=== PATIENT | male | born 1955 | race Caucasian/White ===

== ENCOUNTER 2017-07-27 05:47 | Emergency (ER) | payer SELFPAY ==
[~2017-07-27] VITALS: Ht 180.3 cm; Wt 81.6 kg
[~2017-07-27 05:47] MED LIST: MECL25TA3 PO
[2017-07-27] MEDS ORDERED: LISINOPRIL 10 MG TABLET PO ONE (07:00)
--- NOTE | 2017-07-27 07:08 | RAD ---
INDICATION: WEAKNESS, OFF BALANCE COMPARISON: None. TECHNIQUE: Axial CT images obtained through the head without intravenous contrast. One or more of the following individualized dose reduction techniques were utilized for this examination: 1. Automated exposure control; 2. Adjustment of the mA and/or kV according to patient size; 3. Use of iterative reconstruction technique. FINDINGS: No intracranial hemorrhage. No midline shift. Basal cisterns patent. Ventricles and sulci are unremarkable. No acute osseous abnormality. Mild mucosal thickening left maxillary sinus partially seen. Mild nasal septal bowing. IMPRESSION: 1. No acute intracranial hemorrhage. Electronically signed by: Manish Rivas MD (07/27/2017 7:04 AM) [id number]
--- NOTE | 2017-07-27 07:15 | RAD ---
Chest, 2 views, 07/27/2017: History: Weakness, loss of balance Comparison is made to a study from 10/06/2015. The heart size and pulmonary vascularity are normal. No pulmonary infiltrates are seen. There are granulomatous calcifications in the left chest. There is no evidence of pleural fluid. Moderate degenerative changes are present in the spine. A surgical plate and screws transfixing an old healed left clavicular fracture. IMPRESSION: No acute cardiopulmonary abnormality is detected.
[2017-07-27 07:31] LABS: BASO % 1 % (0-3); EOS # 0.1 x10^3/uL (0.0-0.7); EOS % 1 % (0-3); HEMATOCRIT 46.6 % (39.0-53.0); HEMOGLOBIN 16.2 g/dL (13.0-17.5); LYMPH # 0.8 x10^3/uL (1.0-4.8); LYMPH % 11 % (24-48); MEAN CORPUSCULAR HEMOGLOBIN 35 pg (25-35); MEAN CORPUSCULAR HGB CONC 35 g/dL (31-37); MEAN CORPUSCULAR VOLUME 101 fL (79-100); MONO # 0.5 x10^3/uL (0.0-1.1); MONO % 8 % (0-9); NEUT # 5.4 x10^3uL (1.8-7.7); NEUT % 80 % (31-73); PLATELET COUNT 197 x10^3/uL (140-400); RED BLOOD COUNT 4.62 x10^6/uL (4.30-5.70); RED CELL DISTRIBUTION WIDTH 13.7 % (11.5-14.5); WHITE BLOOD COUNT 6.8 x10^3/uL (4.0-11.0)
--- NOTE | 2017-07-27 07:45 | PHYS DOC ---
Past History Past Medical History: Anxiety, Hypertension, Migraines, Other Past Surgical History: Other Smoking: Cigarettes Alcohol Use: Occasionally Drug Use: None Adult General Chief Complaint Chief Complaint: WEAKNESS/GENERALIZED HPI HPI Patient is a 62-year-old male who presents driving himself to the emergency department with the complaint "I'm in a fog". Patient states that for 3 weeks or more he has had worsening symptoms of feeling like he is in a fog. He feels like his legs "won't work". Patient saw his doctor for these complaints recently and was advised to quit smoking and stop intake of dairy. Patient got up this morning at 3 AM as usual. He felt worse than he has been feeling. He drove himself to work and then stated that he virtually collapsed. He was not able to walk once he got to work. Coworkers helped him back to his truck and he drove here to be seen. He ambulated from the parking lot into the waiting room to sign in. 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 He works driving a bus until about 5 PM. He likes his job. He has recently felt like he's had more trouble doing his job because of these symptoms and because of fatigue. This morning the patient did not take his morning blood pressure medicine. He takes lisinopril 10 mg every morning. He didn't take it this morning because he didn't feel good and was not sure why. He usually does take it every morning when he gets up, last dose was yesterday morning at about 3 AM. Patient is a smoker. His last drink was Tuesday during the football game. He does not drink daily or heavily. 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 PCP Dr. Karolina Zacarias Review of Systems Review of Systems Constitutional: Denies fever or chills Eyes: Denies change in visual acuity, redness, or eye pain [] HENT: He has had a runny nose Respiratory: He has had cough, no shortness of breath Cardiovascular: Denies chest pain GI: Denies vomiting or diarrhea Musculoskeletal: Denies back pain or joint pain [] Integument: Denies rash or skin lesions [] Neurologic: Denies headache All other systems were reviewed and found to be within normal limits, except as documented in this note. Current Medications Current Medications Current Medications Medications (Trade) Dose Ordered Sig/Chavo Start Time Stop Time Status Last Admin Dose Admin Lisinopril (Prinivil) 20 mg 1X ONCE 07/27/17 07:00 07/27/17 07:01 DC 07/27/17 07:05 20 MG Allergies Allergies Allergies Coded Allergies Type Severity Reaction Last Updated Verified sumatriptan Allergy Unknown 03/16/15 No Physical Exam Physical Exam Constitutional: Well developed, well nourished, no acute distress, non-toxic appearance. Alert, warm and dry, mentating well, vital signs stable although blood pressure elevated. HENT: Normocephalic, atraumatic, bilateral external ears normal, nose normal. [] Eyes: conjunctiva normal, no discharge. [] Neck: Normal range of motion, no stridor. [] Cardiovascular:Heart rate regular rhythm, no murmur [] Lungs & Thorax: Bilateral breath sounds clear to auscultation [] Abdomen: soft, no tenderness, no masses, no pulsatile masses. [] Skin: Warm, dry, no erythema, no rash. [] Extremities: No tenderness, no cyanosis, no clubbing, ROM intact, no edema. [] Neurologic: Alert and oriented X 3, normal motor function, no focal deficits noted. Lower extremity strength 5 over 5 and equal bilaterally for extension against resistance and dorsiflexion of the great toes. Current Patient Data Vital Signs Vital Signs Date Time Temp Pulse Resp B/P (MAP) Pulse Ox O2 Delivery O2 Flow Rate FiO2 07/27/17 07:05 72 164/110 07/27/17 05:49 98.9 24 99 Room Air Lab Results Laboratory Tests Test 07/27/17 07:10 White Blood Count 6.8 x10^3/uL (4.0-11.0) Red Blood Count 4.62 x10^6/uL (4.30-5.70) Hemoglobin 16.2 g/dL (13.0-17.5) Hematocrit 46.6 % (39.0-53.0) Mean Corpuscular Volume 101 fL (79-100) H Mean Corpuscular Hemoglobin 35 pg (25-35) Mean Corpuscular Hemoglobin Concent 35 g/dL (31-37) Red Cell Distribution Width 13.7 % (11.5-14.5) Platelet Count 197 x10^3/uL (140-400) Neutrophils (%) (Auto) 80 % (31-73) H Lymphocytes (%) (Auto) 11 % (24-48) L Monocytes (%) (Auto) 8 % (0-9) Eosinophils (%) (Auto) 1 % (0-3) Basophils (%) (Auto) 1 % (0-3) Neutrophils # (Auto) 5.4 x10^3uL (1.8-7.7) Lymphocytes # (Auto) 0.8 x10^3/uL (1.0-4.8) L Monocytes # (Auto) 0.5 x10^3/uL (0.0-1.1) Eosinophils # (Auto) 0.1 x10^3/uL (0.0-0.7) Basophils # (Auto) 0.0 x10^3/uL (0.0-0.2) EKG EKG 12-lead EKG read by me. Sinus rhythm. Heart rate 72. There are no acute ST or T wave changes indicative of ischemia or infarction. No STEMI. No rhythm disturbance. 0644[] Radiology/Procedures Radiology/Procedures Two-view chest x-ray read by the radiologist. No acute findings.[] Course & Med Decision Making Course & Med Decision Making Pertinent Labs and Imaging studies reviewed. (See chart for details) 62-year-old male presents driving himself to the emergency department and ambulated into the waiting room with the complaint of not feeling well for 3 weeks or more, getting worse, legs going out from under him and legs "wobbly" are most of the chief complaints. The patient is having no pain, has had no chest pain or shortness of breath. EKG unremarkable. CT scan of the head read by the radiologist. No acute abnormalities. Labs significant for elevated d- dimer. We will check a CT angiography of the chest. CT angiography negative for acute findings. The patient was given a liter of IV normal saline in the ED. Recheck patient, he states he feels a little better after the liter of fluids. His legs do not feel as wobbly. I believe the patient is stable for discharge. We did not find any acute finding as a cause of his symptoms. I did encourage him to follow up with his primary care doctor for further evaluation, recheck, possible referral. Patient was noted to have elevated blood pressure in the ED. He had not taken his morning dose of lisinopril. Lisinopril was administered, his blood pressure came down some, but remained slightly elevated. I encouraged him to stay on his lisinopril and follow up with his doctor for blood pressure recheck. See instructions for plan. [] Dragon Disclaimer Dragon Disclaimer This electronic medical record was generated, in whole or in part, using a voice recognition dictation system. Departure Departure: Impression: Primary Impression: Lightheadedness Additional Impression: Hypertension Disposition: 01 HOME, SELF-CARE Condition: STABLE Referrals: KAROLINA KAMARA DO (PCP) Patient Instructions: Hypertension, [id number], Smoking Hazards Additional Instructions: As we discussed, I advised you not to go back to work today, and do not return to work until you are feeling better and safe to drive. Make a follow-up appointment with your primary care doctor to have your blood pressure rechecked. If your blood pressure continues to run high, discuss options with your primary care doctor. You may need to increase lisinopril dosage and/or add a second blood pressure medicine. Problem Qualifiers NILO VELOZ MD Jul 27, 2017 07:45
[2017-07-27 07:54] LABS: ALBUMIN 4.2 g/dL (3.4-5.0); ALBUMIN/GLOBULIN RATIO 1.2 (1.0-1.7); CREATININE 1.2 mg/dL (0.7-1.3); GFR 61.8; MAGNESIUM 1.7 mg/dL (1.8-2.4); POTASSIUM 3.6 mmol/L (3.5-5.1); TOTAL BILIRUBIN 0.8 mg/dL (0.2-1.0); TOTAL PROTEIN 7.6 g/dL (6.4-8.2)
[2017-07-27 08:02] LABS: BACTERIA,URINE 0 /HPF (0-FEW); BILIRUBIN,URINE NEG (NEG); CLARITY,URINE CLEAR; COLOR,URINE AMBER; GLUCOSE,URINE NEG (NEG); HYALINE CASTS, URINE OCC /HPF; NITRITE,URINE NEG (NEG); RBC,URINE OCC /HPF (0-2); SQUAMOUS EPITHELIAL CELL,UR OCC /LPF; UROBILINOGEN,URINE 2 mg/dL (0.2 mg/dL); WBC,URINE 0 /HPF (0-4)
[2017-07-27] MEDS ORDERED: IV NORMAL SALINE 1,000ML 1,000 ML IV ONE (08:30)
[2017-07-27] MEDS ORDERED: IOHEXOL 300 MG/ML 75 ML VIAL. IV ONE (08:45)
--- NOTE | 2017-07-27 09:15 | RAD ---
CTA of the chest with contrast, 07/27/2017: History: Elevated d-dimer, weakness Multidetector CT imaging was performed following an IV bolus injection of iodinated contrast material. Multiplanar reconstructions were produced including coronal MIP images. The central pulmonary arteries are well opacified and no filling defects are seen to suggest pulmonary emboli. There is mild calcific plaquing of the thoracic aorta without evidence of aneurysm. Minimal coronary artery calcification is present. No mediastinal or hilar adenopathy is evident. There are calcified mediastinal and left hilar lymph nodes due to old granulomatous disease. There is minimal dependent atelectasis in the posterior costophrenic angles bilaterally. No pulmonary mass or significant infiltrate is seen. There is no evidence of pleural fluid. A small nonspecific low-density lesion in the anterior aspect of the left lobe of liver is unchanged since 10/06/2015. IMPRESSION: No CT evidence of central pulmonary emboli. PQRS Compliance Statement: One or more of the following individualized dose reduction techniques were utilized for this examination: 1. Automated exposure control 2. Adjustment of the mA and/or kV according to patient size 3. Use of iterative reconstruction technique
[2017-07-27 11:30] VITALS: BP 137/103
--- NOTE | 2017-07-27 18:44 | EKG ---
[address] [address] Test Date: 2017-07-27 Test Time: 06:44:09 Pat Name: [facility] Department: Room: Gender: M Clinic Administrator: WARREN : 1955 Requested By: NILO VELOZ Order Number: [id number] Reading MD: Bill Lechuga Measurements Intervals [place] Rate: 72 P: 56 MN: 136 QRS: 12 QRSD: 106 T: 0 QT: 392 QTc: 431 Interpretive Statements SINUS RHYTHM Electronically Signed On 08-01-2017 16:41:18 WARRANT SERVER by Bill Lechuga
== END 2017-07-27 11:30 | disposition home or self-care (01) ==
LOC: ER 05:47
DX: R42 Dizziness and giddiness (principal); I10 Essential (primary) hypertension; F41.9 Anxiety disorder, unspecified; G43.909 Migraine, unspecified, not intractable, without status migrainosus; F17.210 Nicotine dependence, cigarettes, uncomplicated; Z88.1 Allergy status to other antibiotic agents
CPT/HCPCS: 36415; 70450; 71020; 71275; 80053; 81001; 82553; 83735; 83880; 84443; 84484; 85025; 85379; 93005; 96360; 96361; 99285; Q9967; J7030

== ENCOUNTER 2017-12-14 20:12 | Inpatient (IN) | payer SELFPAY ==
[~2017-12-14] VITALS: Ht 180.3 cm; Wt 78.5 kg
[2017-12-14] MEDS ORDERED: IV NORMAL SALINE 1,000ML 1,000 ML IV ONE (20:30)
--- NOTE | 2017-12-14 20:40 | PHYS DOC ---
Past History Past Medical History: Anxiety, Hypertension, Migraines, Other Past Surgical History: Other Smoking: Cigarettes Alcohol Use: Heavy Drug Use: None Adult General Chief Complaint Chief Complaint: ALCOHOL INTOXICATION HPI HPI Patient is a 62 year old M who presents with EtOH intoxication and suicidal ideation. Patient was on the phone with his ex- and apparently made some statements that he wanted to harm himself therefore she called EMS who brought him to the emergency room for further evaluation and management. Patient states he's been drinking a liter of vodka today. Patient's has been heavily drinking for the past 3-4 days. Patient states he wanted to go to sleep and never wake up again. Patient has no previous history of suicide times. Patient has no guns in the house. Patient has no other complaints. Review of Systems Review of Systems GEN: Depression HEENT: Denies blurred vision, sore throat CV: Denies chest pain RESP: Denies shortness of air, cough GI: Denies n/v/d NEURO: Denies confusion, dizziness MSK: Denies weakness, joint pain/swelling All other systems were reviewed and found to be within normal limits, except as documented in this note. Current Medications Current Medications Current Medications Medications (Trade) Dose Ordered Sig/Chavo Start Time Stop Time Status Last Admin Dose Admin Sodium Chloride 1,000 ml @ 1,000 mls/hr 1X ONCE 12/14/17 20:30 12/14/17 21:29 UNV Allergies Allergies Allergies Coded Allergies Type Severity Reaction Last Updated Verified sumatriptan Allergy Unknown 03/16/15 No Physical Exam Physical Exam GEN.: No apparent distress. Alert and oriented. HEENT: Head is normocephalic, atraumatic NECK: Supple. LUNGS: CTAB. HEART: RRR, S1, S2 present. Peripheral pulses intact ABDOMEN: Soft, nontender. Positive bowel sounds. EXTREMITIES: Without any cyanosis. NEUROLOGIC: Normal speech, normal tone PSYCHIATRIC: Depressed SKIN: No ulcerations Current Patient Data Vital Signs Vital Signs Date Time Temp Pulse Resp B/P (MAP) Pulse Ox O2 Delivery O2 Flow Rate FiO2 12/14/17 20:29 97.8 106 18 100 Room Air Lab Results Laboratory Tests Test 12/14/17 20:26 12/14/17 21:02 Urine Collection Type Unknown Urine Color Yellow Urine Clarity Hazy Urine pH 6.0 Urine Specific [place] 1.020 Urine Protein 100 mg/dl Urine Glucose (UA) Neg mg/dL Urine Ketones (Stick) 40 mg/dL Urine Blood Trace Urine Nitrite Neg Urine Bilirubin Neg Urine Urobilinogen Dipstick 0.2 mg/dL Urine Leukocyte Esterase Neg Urine RBC 1-2 /HPF Urine WBC 5-10 /HPF Urine Squamous Epithelial Cells Few /LPF Urine Bacteria 0 /HPF Urine Hyaline Casts Mod /HPF Urine Mucus Mod /LPF Urine Opiates Screen Neg Urine Methadone Screen Neg Urine Barbiturates Neg Urine Phencyclidine Screen Neg Urine Amphetamine/Methamphetamine Neg Urine Benzodiazepines Screen Neg Urine Cocaine Screen Neg Urine Cannabinoids Screen Neg Urine Ethyl Alcohol Pos White Blood Count 8.7 x10^3/uL Red Blood Count 4.39 x10^6/uL Hemoglobin 14.5 g/dL Hematocrit 41.8 % Mean Corpuscular Volume 95 fL Mean Corpuscular Hemoglobin 33 pg Mean Corpuscular Hemoglobin Concent 35 g/dL Red Cell Distribution Width 13.8 % Platelet Count 345 x10^3/uL Neutrophils (%) (Auto) 76 % Lymphocytes (%) (Auto) 16 % Monocytes (%) (Auto) 8 % Eosinophils (%) (Auto) 0 % Basophils (%) (Auto) 0 % Neutrophils # (Auto) 6.6 x10^3uL Lymphocytes # (Auto) 1.4 x10^3/uL Monocytes # (Auto) 0.7 x10^3/uL Eosinophils # (Auto) 0.0 x10^3/uL Basophils # (Auto) 0.0 x10^3/uL Sodium Level 136 mmol/L Potassium Level 4.2 mmol/L Chloride Level 97 mmol/L Carbon Dioxide Level 23 mmol/L Anion Gap 16 Blood Urea Nitrogen 26 mg/dL Creatinine 1.2 mg/dL Estimated GFR (Cockcroft-Gault) 61.8 BUN/Creatinine Ratio 22 Glucose Level 101 mg/dL Calcium Level 9.1 mg/dL Magnesium Level 2.2 mg/dL Total Bilirubin 0.4 mg/dL Aspartate Amino Transf (AST/SGOT) 94 U/L Alanine Aminotransferase (ALT/SGPT) 85 U/L Alkaline Phosphatase 119 U/L Total Protein 7.2 g/dL Albumin 3.8 g/dL Albumin/Globulin Ratio 1.1 Lipase 672 U/L Ethyl Alcohol Level 297 mg/dL Current Medications Medications (Trade) Dose Ordered Sig/Chavo Route PRN Reason Start Time Stop Time Status Last Admin Dose Admin Sodium Chloride 1,000 ml @ 1,000 mls/hr 1X ONCE IV 12/14/17 20:30 12/14/17 21:29 DC 12/14/17 20:59 EKG EKG [] Radiology/Procedures Radiology/Procedures [] Course & Med Decision Making Course & Med Decision Making Pertinent Labs and Imaging studies reviewed. (See chart for details) ED course: Patient was seen and examined emergency room upon arrival basic blood work was ordered along with an EtOH level On reexamination patient states he is in no pain updated patient on abnormal blood test including an elevated lipase however he states he has no abdominal pain with an no nausea or vomiting Will bring in the tele-psych to evaluate the patient Tele-psych will not evaluate the patient's and his blood alcohol is above 100 therefore will admit the patient for further evaluation and management Discussed CC/HP/PMH with Dr. Sykes and recommends admit [] [] Dragon Disclaimer Dragon Disclaimer This electronic medical record was generated, in whole or in part, using a voice recognition dictation system. Departure Departure: Impression: Primary Impression: Alcohol abuse Additional Impressions: Depression Suicidal ideation Disposition: ADMITTED INPATIENT Admitting Physician: Aubree Sykes Condition: STABLE Referrals: KAROLINA KAMARA DO (PCP) Problem Qualifiers RENE WHYTE DO Dec 14, 2017 20:40
[2017-12-14 21:22] LABS: BASO % 0 % (0-3); EOS % 0 % (0-3); HEMATOCRIT 41.8 % (39.0-53.0); HEMOGLOBIN 14.5 g/dL (13.0-17.5); LYMPH # 1.4 x10^3/uL (1.0-4.8); LYMPH % 16 % (24-48); MEAN CORPUSCULAR HEMOGLOBIN 33 pg (25-35); MEAN CORPUSCULAR HGB CONC 35 g/dL (31-37); MEAN CORPUSCULAR VOLUME 95 fL (79-100); MONO # 0.7 x10^3/uL (0.0-1.1); MONO % 8 % (0-9); NEUT # 6.6 x10^3uL (1.8-7.7); NEUT % 76 % (31-73); PLATELET COUNT 345 x10^3/uL (140-400); RED BLOOD COUNT 4.39 x10^6/uL (4.30-5.70); RED CELL DISTRIBUTION WIDTH 13.8 % (11.5-14.5); WHITE BLOOD COUNT 8.7 x10^3/uL (4.0-11.0)
[2017-12-14 21:39] LABS: ALBUMIN 3.8 g/dL (3.4-5.0); ALBUMIN/GLOBULIN RATIO 1.1 (1.0-1.7); CALCIUM 9.1 mg/dL (8.5-10.1); CREATININE 1.2 mg/dL (0.7-1.3); GFR 61.8; MAGNESIUM 2.2 mg/dL (1.8-2.4); POTASSIUM 4.2 mmol/L (3.5-5.1); TOTAL BILIRUBIN 0.4 mg/dL (0.2-1.0); TOTAL PROTEIN 7.2 g/dL (6.4-8.2)
[2017-12-14 21:42] LABS: BACTERIA,URINE 0 /HPF (0-FEW); BILIRUBIN,URINE NEG (NEG); CLARITY,URINE HAZY; COLOR,URINE YELLOW; GLUCOSE,URINE NEG (NEG); NITRITE,URINE NEG (NEG); SQUAMOUS EPITHELIAL CELL,UR FEW /LPF; UROBILINOGEN,URINE 0.2 mg/dL (0.2 mg/dL)
[2017-12-14 21:43] LABS: HYALINE CASTS, URINE MOD /HPF
[2017-12-14 22:01] LABS: BARBITURATES NEG (NEG); BENZODIAZEPINES NEG (NEG); CANNABINOIDS NEG (NEG); COCAINE NEG (NEG); METHADONE NEG (NEG); OPIATES NEG (NEG); PHENCYCLIDINE NEG (NEG)
[2017-12-14 22:03] LABS: AMPHETAMINE/METHAMPHETAMINE NEG (NEG)
[2017-12-15] MEDS ORDERED: IV NORMAL SALINE 1,000ML 1,000 ML IV SCH
[2017-12-15] MEDS ORDERED: ONDANSETRON PF 4 MG/2 ML VIAL. IV PRN ×2 (00:15→01:00)
[2017-12-15] MEDS ORDERED: LORazepam 2 MG/ML VIAL IV ONE (00:15)
[2017-12-15] MEDS ORDERED: ACETAMINOPHEN 325 MG TABLET PO PRN ×2 (00:15→01:00)
[2017-12-15] MEDS ORDERED: HALOPERIDOL LACT 5 MG/ML VIAL. IV PRN (01:45)
[2017-12-15] MEDS ORDERED: cloNIDine HCL 0.1 MG TABLET PO PRN (01:45)
[2017-12-15] MEDS ORDERED: LORazepam 2 MG/ML VIAL IV PRN (01:45)
[2017-12-15] MEDS ORDERED: diphenhydrAMINE 50 MG/ML VIAL IVP PRN (01:45)
[2017-12-15] MEDS ORDERED: NICOTINE 21MG PATCH. TD PRN (02:00)
[2017-12-15 02:07] VITALS: BP 125/78
[2017-12-15] MEDS: LORazepam 2 MG/ML VIAL IV PRN ×2 (02:08→09:13)
[2017-12-15] MEDS: IV NORMAL SALINE 1,000ML 1,000 ML IV SCH ×2 (02:09→07:51)
[2017-12-15] MEDS ORDERED: TRAZ150T49 PO (03:33)
[2017-12-15] MEDS ORDERED: THIA100T43 PO (03:33)
[2017-12-15] MEDS ORDERED: HYDR25TA PO (03:33)
[2017-12-15] MEDS ORDERED: FOLI1TAB16 PO (03:33)
[2017-12-15] MEDS ORDERED: SERT50TA PO (03:33)
[2017-12-15] MEDS ORDERED: LISI10TA2 PO (03:33)
[2017-12-15 05:27] VITALS: BP 114/68
[2017-12-15 06:34] LABS: BASO # 0.1 x10^3/uL (0.0-0.2); BASO % 1 % (0-3); EOS # 0.1 x10^3/uL (0.0-0.7); EOS % 1 % (0-3); HEMATOCRIT 33.8 % (39.0-53.0); HEMOGLOBIN 11.8 g/dL (13.0-17.5); LYMPH # 1.9 x10^3/uL (1.0-4.8); LYMPH % 21 % (24-48); MEAN CORPUSCULAR HEMOGLOBIN 33 pg (25-35); MEAN CORPUSCULAR HGB CONC 35 g/dL (31-37); MEAN CORPUSCULAR VOLUME 96 fL (79-100); MONO # 0.6 x10^3/uL (0.0-1.1); MONO % 6 % (0-9); NEUT # 6.4 x10^3uL (1.8-7.7); NEUT % 71 % (31-73); PLATELET COUNT 270 x10^3/uL (140-400); RED BLOOD COUNT 3.53 x10^6/uL (4.30-5.70); RED CELL DISTRIBUTION WIDTH 14.4 % (11.5-14.5); WHITE BLOOD COUNT 9.1 x10^3/uL (4.0-11.0)
[2017-12-15 06:39] LABS: ALBUMIN 3.1 g/dL (3.4-5.0); ALBUMIN/GLOBULIN RATIO 1.1 (1.0-1.7); CALCIUM 8.1 mg/dL (8.5-10.1); GFR 76.2; POTASSIUM 3.6 mmol/L (3.5-5.1); TOTAL BILIRUBIN 0.5 mg/dL (0.2-1.0); TOTAL PROTEIN 5.8 g/dL (6.4-8.2)
[2017-12-15 06:52] VITALS: BP 127/70
[2017-12-15] MEDS ORDERED: THIAMINE 100 MG in IV NORMAL SALINE 50ML 50 ML IV SCH (09:00)
[2017-12-15] MEDS ORDERED: LISINOPRIL 10 MG TABLET PO SCH (09:00)
[2017-12-15] MEDS ORDERED: FOLIC ACID 1 MG TABLET PO SCH (09:00)
[2017-12-15] MEDS ORDERED: MULTIVITAMIN with MINERAL TABLET. PO SCH (09:00)
[2017-12-15] MEDS ORDERED: THIAMINE 100 MG TABLET. PO SCH (09:00)
[2017-12-15 10:42] VITALS: BP 108/67
--- NOTE | 2017-12-15 14:16 | SSS ---
ADMIT DATE: 12/15/2017 HISTORY OF PRESENT ILLNESS: The patient is a 62-year-old male patient, who was brought to the Emergency Room with alcohol intoxication, suicidal ideation. The patient was on the phone with his ex-. Apparently made some statements that he wanted to harm himself. Therefore, she called EMS, who brought him to the Emergency Room for further evaluation and management. The patient states he had been drunken liter of vodka today, has been heavily drinking for the past 3-4 days, states that he wanted to go to sleep and never wake up again. The patient has no previous history of suicidal ideation, has no guns in the house. The patient has no other complaints. He was extensively investigated in the Emergency Room. His chemistry was unremarkable except for elevated liver enzymes. He was found to have also slightly elevated serum lipase 672, although apparently the patient himself did not complain of any abdominal pain, nausea, or vomiting. He was admitted for observation overnight. [facility] and apparently they feel that he is safe and he will be discharged to follow up with the [facility]. PAST MEDICAL HISTORY: Significant for hypertension, hyperlipidemia, chronic obstructive pulmonary disease and alcoholism. PAST SURGICAL HISTORY: Extensive including bilateral ankle fracture was treated open reduction and internal fixation, back surgery, laminectomies, traumatic pneumothorax, right elbow fracture, left biceps tendon rupture, left cuff rupture, left clavicle fracture. ALLERGIES: He is allergic to IMITREX. MEDICATIONS: He is currently on following medications: He is on lisinopril 10 mg once a day, hydroxyzine 50 mg daily, folic acid 1 mg once a day, thiamine 100 mg once a day, trazodone 150 mg at bedtime and sertraline for Zoloft 50 mg daily for depression and anxiety. FAMILY HISTORY: He has 1 brother, older of hanging himself. His sister is alive and healthy. SOCIAL HISTORY: He is , has 2 sons. He smokes one and a half pack a day, drinks about of vodka everyday, although recently he has been drinking more. 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 He is now unemployed. REVIEW OF SYSTEMS: As per history of present illness. PHYSICAL EXAMINATION GENERAL: When I saw him, he was sitting comfortably in the edge of the bed, in no apparent distress. No pallor, jaundice, cyanosis, or thyromegaly. No jugular venous distension. No limb edema. VITAL SIGNS: His heart rate was 93, blood pressure was 108/67, temperature was 98.8, respiratory rate was 16, and oxygen saturation was 97%. HEAD, EYES, EARS, NOSE AND THROAT: Showed normocephalic, atraumatic. NECK: Supple. HEART: Showed normal first and second heart sounds with no gallop, rub or murmur. CHEST: Clear to auscultation. No crepitation or rhonchi. ABDOMEN: Distended, soft, nontender. No guarding or rigidity. No organomegaly. All hernial orifices intact. Bowel sounds normal. NEUROLOGIC: He was awake, alert, responding appropriately. All his cranial nerves are intact. EXTREMITIES: He moves extremities without difficulty, ambulates without assistance or assistive devices. LABORATORY DATA: On admission showed a white cell count of 8700, hemoglobin 14.5, hematocrit 42, MCV 95 and platelet count 345,000. His serum sodium was 136, potassium 4.2, chloride 97, bicarbonate 23, anion gap of 16, BUN 26, creatinine 1.2, estimated GFR was 62 mL per minute. His glucose was 101, calcium was 9.1, magnesium 2.2. Total bilirubin is normal; however, AST, ALT, alkaline phosphatase are elevated. Total protein was 7.2, albumin was 3.8 and serum lipase was high at 672. ASSESSMENT AND PLAN: The patient will be discharged to follow with [facility]. FINAL DISCHARGE DIAGNOSES: Alcohol abuse and alcohol intoxication, depression, suicidal ideation, deranged liver enzyme. His serum lipase slightly elevated; however, the patient was asymptomatic. We will discharge the patient after checking his serum lipase to make sure that it is trending downward. ASAEL GONZALEZ MD DR: TERRY/herminio JOB#: [id number] / [id number]
== END 2017-12-15 13:45 | disposition home or self-care (01) | DRG 897 ==
LOC: ER 20:12 → ICU 12-15 00:03
PROVIDERS: ADMIT Internal Medicine; ATTEND Internal Medicine
DX: F10.120 Alcohol abuse with intoxication, uncomplicated (principal); R45.851 Suicidal ideations; F41.9 Anxiety disorder, unspecified; I10 Essential (primary) hypertension; G43.909 Migraine, unspecified, not intractable, without status migrainosus; F32.9 Major depressive disorder, single episode, unspecified; Y90.8 Blood alcohol level of 240 mg/100 ml or more; J44.9 Chronic obstructive pulmonary disease, unspecified; E78.5 Hyperlipidemia, unspecified; F17.210 Nicotine dependence, cigarettes, uncomplicated; R74.8 Abnormal levels of other serum enzymes; Z88.8 Allergy status to other drugs, medicaments and biological substances; Z79.899 Other long term (current) drug therapy
CPT/HCPCS: 36415; 80053; 80307; 81001; 83690; 83735; 85025; 87086; 87641; 96361; 96374; 96375; G0480; J2060; J2405; 99285-25; G0479; J7030

== ENCOUNTER 2018-11-13 08:49 | Emergency (ER) | payer SELFPAY ==
[~2018-11-13] VITALS: Ht 332.7 cm; Wt 90.1 kg
[~2018-11-13 08:49] MED LIST changes: +FOLI1TAB16 PO; +HYDR25TA PO; +LISI10TA2 PO; +SERT50TA PO; +THIA100T43 PO; +TRAZ150T49 PO
--- NOTE | 2018-11-13 09:34 | RAD ---
3 views left hand. 11/13/2018 9:24 AM Indication: FALL TODAY Comparison: None available Findings: No evidence of acute fracture or dislocation is seen. Degenerative changes are noted, predominantly involving the thumb. No acute soft tissue changes are seen. Impression: No evidence of acute osseous abnormality. Electronically signed by: Ryan Rivera MD (11/13/2018 9:31 AM) [id number]
--- NOTE | 2018-11-13 09:36 | RAD ---
Indication: Fall TECHNIQUE: Multiple views of the left ribs with PA chest. COMPARISON: None FINDINGS: Status post ORIF of left clavicular fracture. Left lung is clear. No pneumothorax or pleural effusion. No acute fractures. IMPRESSION: No acute findings. INDICATION: Fall TECHNIQUE: 3 views of the lumbar spine and 3 views of the left hip COMPARISON: None FINDINGS: The lumbar spine is in normal anatomic alignment. No compression deformity. SI joints within normal limits. Multilevel mild to moderate degenerative disc disease is seen with facet arthropathy. Bilateral hip joints symmetric with mild osteoarthritis. No acute fracture or dislocation. IMPRESSION: No acute osseous findings. Electronically signed by: Rodrigue Chin DO (11/13/2018 9:33 AM) [facility]
--- NOTE | 2018-11-13 10:06 | RAD ---
CT scan of the head without contrast 11/13/2018 Clinical History: Fall with head trauma. Technique: Unenhanced, contiguous, 5 mm axial sections were obtained through the head. One or more of the following individualized dose reduction techniques were utilized for this study: 1. Automated exposure control. 2. Adjustment of the mA and/or kV according to patient size. 3. Use of iterative reconstruction technique. Findings: Comparison study is dated 07/27/2017. There is generalized parenchymal atrophy. Areas of decreased attenuation are seen within the periventricular and subcortical white matter of both cerebral hemispheres consistent with areas of small vessel ischemic disease. No acute parenchymal abnormality is seen. No extra-axial fluid collection is noted. No skull fracture is seen. Impression: No acute intracranial abnormality is seen. CT scan of the cervical spine without contrast 11/13/2018 Clinical history: Fall with neck injury. Technique: Unenhanced, contiguous, 0.625 mm axial sections were obtained through the cervical spine. Axial, coronal and sagittal reconstructed images were obtained. One or more of the following individualized dose reduction techniques were utilized for this study: 1. Automated exposure control. 2. Adjustment of the mA and/or kV according to patient size. 3. Use of iterative reconstruction technique. Findings: There is straightening of the normal cervical lordosis. Degenerative changes consisting of disc space narrowing, vertebral endplate sclerosis and moderate anterior vertebral body osteophyte formation are seen involving the mid and lower cervical disc spaces. No fracture or subluxation of the cervical vertebrae seen. Degenerative changes are seen involving the uncovertebral and facet joints throughout the cervical disc spaces. Impression: No fracture or subluxation of the cervical vertebra is identified. Electronically signed by: Nickolas Pastrana MD (11/13/2018 10:03 AM) [id number]
[2018-11-13 10:30] VITALS: BP 144/97
--- NOTE | 2018-11-13 10:30 | PHYS DOC ---
Past History Past Medical History: Anxiety, Hypertension, Migraines, Other Past Surgical History: Other Smoking: Cigarettes Alcohol Use: Heavy Drug Use: None Adult General Chief Complaint Chief Complaint: HIP PAIN HPI HPI Patient is a 63 year old male who brought in by EMS because of a fall and pain in left hip. Patient states he has had frequent fall and had a fall this morning when he got out of the chair suddenly and lost his balance and had a fall without hitting his head. Patient complaining of pain in left hand and left hip. Patient was able to ambulate at the scene and rated his pain 3 or 4. Patient take his drinking alcohol frequently and denies suicidal or homicidal ideation. Review of Systems Review of Systems Constitutional: Denies fever or chills [] Eyes: Denies change in visual acuity, redness, or eye pain [] HENT: Denies nasal congestion or sore throat [] Respiratory: Denies cough or shortness of breath [] Cardiovascular: No additional information not addressed in HPI [] GI: Denies abdominal pain, nausea, vomiting, bloody stools or diarrhea [] : Denies dysuria or hematuria [] Musculoskeletal: Denies back pain, reports joint pain [] Integument: Denies rash or skin lesions [] Neurologic: Denies headache, focal weakness or sensory changes [] Endocrine: Denies polyuria or polydipsia [] All other systems were reviewed and found to be within normal limits, except as documented in this note. Allergies Allergies Allergies Coded Allergies Type Severity Reaction Last Updated Verified sumatriptan Allergy Unknown 11/13/18 No Physical Exam Physical Exam Constitutional: Well nourished, no acute distress, non-toxic appearance, smell of alcohol on breath. [] HENT: Normocephalic, atraumatic Eyes: PERRLA, EOMI, conjunctiva normal, no discharge. [] Neck: Normal range of motion, no tenderness, supple, no stridor. [] Cardiovascular: Tachycardia, no murmur [] Lungs & Thorax: Bilateral breath sounds clear to auscultation [] Abdomen: Bowel sounds normal, soft, no tenderness, no masses, no pulsatile masses. [] Skin: Warm, dry, no erythema, no rash. [] Back: No tenderness, no CVA tenderness. [] Extremities: No tenderness, no cyanosis, no clubbing, ROM intact, no edema. [] Neurologic: Alert and oriented X 3, normal motor function, normal sensory function, no focal deficits noted. [] Psychologic: Affect normal, judgement normal, mood normal. [] EKG EKG [] Radiology/Procedures Radiology/Procedures [address] [address] IMAGING REPORT Signed PATIENT: ELY MENDOZA ACCOUNT: [id number] : 1955 LOCATION: ER AGE: 63 SEX: M EXAM STATUS: REG ER ORD. PHYSICIAN: PURVI MARIANO MD REASON: injury PROCEDURE: HAND LEFT 3V 3 views left hand. 11/13/2018 9:24 AM Indication: FALL TODAY Comparison: None available Findings: No evidence of acute fracture or dislocation is seen. Degenerative changes are noted, predominantly involving the thumb. No acute soft tissue changes are seen. Impression: No evidence of acute osseous abnormality. Electronically signed by: Ryan Dumont MD (11/13/2018 9:31 AM) [id number] DICTATED AND SIGNED BY: RYAN DUMONT MD DATE: 11/13/18 0931 CC: PURVI MARIANO MD; PCP,NO ~ [address] [address] IMAGING REPORT Signed PATIENT: ELY MENDOZA ACCOUNT: [id number] : 1955 LOCATION: ER AGE: 63 SEX: M EXAM STATUS: REG ER ORD. PHYSICIAN: PURVI MARIANO MD REASON: fall PROCEDURE: CT HEAD AND CERVICAL SPINE WO CT scan of the head without contrast 11/13/2018 Clinical History: Fall with head trauma. Technique: Unenhanced, contiguous, 5 mm axial sections were obtained through the head. One or more of the following individualized dose reduction techniques were utilized for this study: 1. Automated exposure control. 2. Adjustment of the mA and/or kV according to patient size. 3. Use of iterative reconstruction technique. Findings: Comparison study is dated 07/27/2017. There is generalized parenchymal atrophy. Areas of decreased attenuation are seen within the periventricular and subcortical white matter of both cerebral hemispheres consistent with areas of small vessel ischemic disease. No acute parenchymal abnormality is seen. No extra-axial fluid collection is noted. No skull fracture is seen. Impression: No acute intracranial abnormality is seen. CT scan of the cervical spine without contrast 11/13/2018 Clinical history: Fall with neck injury. Technique: Unenhanced, contiguous, 0.625 mm axial sections were obtained through the cervical spine. Axial, coronal and sagittal reconstructed images were obtained. One or more of the following individualized dose reduction techniques were utilized for this study: 1. Automated exposure control. 2. Adjustment of the mA and/or kV according to patient size. 3. Use of iterative reconstruction technique. Findings: There is straightening of the normal cervical lordosis. Degenerative changes consisting of disc space narrowing, vertebral endplate sclerosis and moderate anterior vertebral body osteophyte formation are seen involving the mid and lower cervical disc spaces. No fracture or subluxation of the cervical vertebrae seen. Degenerative changes are seen involving the uncovertebral and facet joints throughout the cervical disc spaces. Impression: No fracture or subluxation of the cervical vertebra is identified. Electronically signed by: Nickolas Pastrana MD (11/13/2018 10:03 AM) [id number] DICTATED AND SIGNED BY: NICKOLAS PASTRANA MD DATE: 11/13/18 1003 CC: PURVI MARIANO MD; PCP,NO ~ [place] [address] IMAGING REPORT Signed PATIENT: ELY MENDOZA ACCOUNT: [id number] : 1955 LOCATION: ER AGE: 63 SEX: M EXAM STATUS: REG ER ORD. PHYSICIAN: PURVI MARIANO MD REASON: injury PROCEDURE: HIP LEFT 2V WITH PELVIS Indication: Fall TECHNIQUE: Multiple views of the left ribs with PA chest. COMPARISON: None FINDINGS: Status post ORIF of left clavicular fracture. Left lung is clear. No pneumothorax or pleural effusion. No acute fractures. IMPRESSION: No acute findings. INDICATION: Fall TECHNIQUE: 3 views of the lumbar spine and 3 views of the left hip COMPARISON: None FINDINGS: The lumbar spine is in normal anatomic alignment. No compression deformity. SI joints within normal limits. Multilevel mild to moderate degenerative disc disease is seen with facet arthropathy. Bilateral hip joints symmetric with mild osteoarthritis. No acute fracture or dislocation. IMPRESSION: No acute osseous findings. Electronically signed by: Elder Chin DO (11/13/2018 9:33 AM) [facility] DICTATED AND SIGNED BY: ELDER CHIN DO DATE: 11/13/18 0933 CC: PURVI MARIANO MD; PCP,NO ~ Course & Med Decision Making Course & Med Decision Making Pertinent Imaging studies reviewed. (See chart for details) Evaluation of patient in ER showed 63-year-old male patient with history of alcohol abuse. Brought in by EMS because of a fall. She was ambulated in ER without problem. Patient had mild tachycardia and anxiety and requesting anxiety medication and instructed to follow up with his primary care physician at the [facility]. X-ray of extremities and CT of head and neck was unremarkable. Plan discharge patient home to diagnose of frequent fall and alcohol abuse. Dragon Disclaimer Dragon Disclaimer This electronic medical record was generated, in whole or in part, using a voice recognition dictation system. Departure Departure: Impression: Primary Impression: Frequent falls Additional Impressions: Injury of left hip Contusion of chest wall Alcohol abuse Disposition: HOME, SELF-CARE (@1029) Condition: STABLE Referrals: PCP,ZO (PCP) Patient Instructions: Alcohol Problems, Fall Prevention and Home Safety, Hip Injury Additional Instructions: Drink plenty of liquids Follow-up with your primary care physician in 2-3 days Return to ER if not getting better Problem Qualifiers Additional Impressions: Injury of left hip Encounter type: initial encounter Qualified Codes: S79.912A - Unspecified injury of left hip, initial encounter Contusion of chest wall Encounter type: subsequent encounter Laterality: left Qualified Codes: S20.212D - Contusion of left front wall of thorax, subsequent encounter PURVI MARIANO MD Nov 13, 2018 10:30
== END 2018-11-13 10:30 | disposition home or self-care (01) ==
LOC: ER 08:49
DX: S79.912A Unspecified injury of left hip, initial encounter (principal); S20.212A Contusion of left front wall of thorax, initial encounter; R29.6 Repeated falls; F10.20 Alcohol dependence, uncomplicated; M16.0 Bilateral primary osteoarthritis of hip; F41.9 Anxiety disorder, unspecified; I10 Essential (primary) hypertension; G43.909 Migraine, unspecified, not intractable, without status migrainosus; F17.210 Nicotine dependence, cigarettes, uncomplicated; Z88.1 Allergy status to other antibiotic agents; Y90.9 Presence of alcohol in blood, level not specified; W18.30XA Fall on same level, unspecified, initial encounter; Y93.89 Activity, other specified; Y92.89 Other specified places as the place of occurrence of the external cause; Y99.8 Other external cause status
CPT/HCPCS: 70450; 71101; 72100; 72125; 73130; 73502; 99284-25

== ENCOUNTER 2018-11-13 11:35 | Emergency (ER) | payer SELFPAY ==
[~2018-11-13] VITALS: Ht 180.3 cm; Wt 90.0 kg
--- NOTE | 2018-11-13 12:23 | PHYS DOC ---
Past History Past Medical History: Anxiety, Arthritis, Hypertension, Migraines, Other Past Surgical History: Other Smoking: Cigarettes Alcohol Use: Heavy Drug Use: None Adult General Chief Complaint Chief Complaint: DIZZY/LIGHT HEADED [facility] HPI Patient is a 63 year old male with history of alcoholism who presents with complaining of dizziness and shaking. Patient was seen in this emergency room earlier today because of a fall with negative evaluation and was in waiting area for a But he stated he felt lightheadedness with numbness of his hand and his feet and was shaking and requested to be seen again. Patient denies chest pain, shortness of breath, vomiting, focal weakness. Review of Systems Review of Systems Constitutional: Denies fever or chills [] Eyes: Denies change in visual acuity, redness, or eye pain [] HENT: Denies nasal congestion or sore throat [] Respiratory: Denies cough or shortness of breath [] Cardiovascular: No additional information not addressed in HPI [] GI: Denies abdominal pain, nausea, vomiting, bloody stools or diarrhea [] : Denies dysuria or hematuria [] Musculoskeletal: Denies back pain or joint pain [] Integument: Denies rash or skin lesions [] Neurologic: Denies headache, focal weakness or sensory changes [] Endocrine: Denies polyuria or polydipsia [] All other systems were reviewed and found to be within normal limits, except as documented in this note. Allergies Allergies Allergies Coded Allergies Type Severity Reaction Last Updated Verified sumatriptan Allergy Unknown 11/13/18 No Physical Exam Physical Exam Constitutional: Well nourished, no acute distress, non-toxic appearance, smell of alcohol on breath. [] HENT: Normocephalic, atraumatic, Eyes: PERRLA, EOMI, conjunctiva normal, no discharge. [] Neck: Normal range of motion, no tenderness, supple, no stridor. [] Cardiovascular: Tachycardia, no murmur [] Lungs & Thorax: Bilateral breath sounds clear to auscultation [] Abdomen: Bowel sounds normal, soft, no tenderness, no masses, no pulsatile masses. [] Skin: Warm, dry, no erythema, no rash. [] Back: No tenderness, no CVA tenderness. [] Extremities: No tenderness, no cyanosis, no clubbing, ROM intact, no edema. [] Neurologic: Alert and oriented X 3, normal motor function, normal sensory function, no focal deficits noted. [] Psychologic: Affect anxious, judgement normal, mood normal. [] EKG EKG EKG interpreted by me. EKG at 1218 showed normal sinus rhythm at rate of 97, no acute ST and T-wave abnormalities. Radiology/Procedures Radiology/Procedures [] Course & Med Decision Making Course & Med Decision Making Pertinent Labs reviewed. (See chart for details) Evaluation of patient in ER showed 63-year-old male patient with history of alcohol abuse presented to ER for the second time with complaining of dizziness and shaking after hyperventilation. Patient had mild tachycardia that improved with rest. Patient completed without problem. Patient treated with 1 mg of Ativan and instructed to follow with his primary care physician regarding anxiety treatment. Dragon Disclaimer Dragon Disclaimer This electronic medical record was generated, in whole or in part, using a voice recognition dictation system. Departure Departure: Impression: Primary Impression: Panic attack Additional Impressions: Alcohol abuse Elevated liver enzymes Disposition: HOME, SELF-CARE (At 1355) Condition: IMPROVED Referrals: PCPZO (PCP) Patient Instructions: Anxiety and Panic Attacks Additional Instructions: Drink plenty of liquids Follow-up with your primary care physician in 3-5 days Return to ER if not getting better Problem Qualifiers PURVI MARIANO MD Nov 13, 2018 12:23
[2018-11-13 12:31] LABS: BASO # 0.1 x10^3/uL (0.0-0.2); BASO % 1 % (0-3); EOS % 0 % (0-3); LYMPH # 0.8 x10^3/uL (1.0-4.8); LYMPH % 13 % (24-48); MEAN CORPUSCULAR HEMOGLOBIN 32 pg (25-35); MEAN CORPUSCULAR HGB CONC 33 g/dL (31-37); MEAN CORPUSCULAR VOLUME 97 fL (79-100); MONO # 0.6 x10^3/uL (0.0-1.1); MONO % 9 % (0-9); NEUT # 4.9 x10^3uL (1.8-7.7); NEUT % 77 % (31-73); PLATELET COUNT 265 x10^3/uL (140-400); RED BLOOD COUNT 5.06 x10^6/uL (4.30-5.70); RED CELL DISTRIBUTION WIDTH 17.1 % (11.5-14.5); WHITE BLOOD COUNT 6.4 x10^3/uL (4.0-11.0)
--- NOTE | 2018-11-13 12:33 | EKG ---
[address] [address] Test Date: 2018-11-13 Test Time: 12:18:00 Pat Name: ELY [facility] Department: Room: Gender: M Manager Battery: : 1955 Requested By: PURVI MARIANO Order Number: [id number] Reading MD: Eleno Conde MD Measurements Intervals [place] Rate: 97 P: 90 [place]: 162 QRS: 3 QRSD: 98 T: 31 QT: 360 QTc: 462 Interpretive Statements SINUS RHYTHM NON-SPECIFIC ST/T CHANGES Electronically Signed On 11-17-2018 13:12:50 CDT by Eleno Conde MD
[2018-11-13 12:53] LABS: ALBUMIN 4.1 g/dL (3.4-5.0); ALBUMIN/GLOBULIN RATIO 1.2 (1.0-1.7); CREATININE 1.3 mg/dL (0.7-1.3); GFR 56.1; MAGNESIUM 1.7 mg/dL (1.8-2.4); POTASSIUM 4.1 mmol/L (3.5-5.1); TOTAL BILIRUBIN 0.5 mg/dL (0.2-1.0); TOTAL PROTEIN 7.6 g/dL (6.4-8.2)
[2018-11-13 13:13] LABS: AMPHETAMINE/METHAMPHETAMINE NEG (NEG); BARBITURATES NEG (NEG); BENZODIAZEPINES NEG (NEG); CANNABINOIDS NEG (NEG); COCAINE NEG (NEG); METHADONE NEG (NEG); OPIATES NEG (NEG); PHENCYCLIDINE NEG (NEG)
[2018-11-13 13:46] VITALS: BP 174/101
== END 2018-11-13 14:16 | disposition home or self-care (01) ==
LOC: ER 11:35
DX: F41.0 Panic disorder [episodic paroxysmal anxiety] (principal); F10.20 Alcohol dependence, uncomplicated; R74.8 Abnormal levels of other serum enzymes; M19.90 Unspecified osteoarthritis, unspecified site; I10 Essential (primary) hypertension; G43.909 Migraine, unspecified, not intractable, without status migrainosus; F17.210 Nicotine dependence, cigarettes, uncomplicated; Z88.1 Allergy status to other antibiotic agents; Y90.5 Blood alcohol level of 100-119 mg/100 ml
CPT/HCPCS: 36415; 80053; 80307; 82553; 83735; 83880; 84484; 85025; 93005; 96374; 99284; G0480; J2060